=== PATIENT | male | born 1965 | race African-American/Black ===

== ENCOUNTER 2016-07-16 17:58 | Emergency (ER) | payer MEDICAID ==
[~2016-07-16] VITALS: Ht 172.7 cm; Wt 64.0 kg
[2016-07-16 18:21] VITALS: BP 103/73
== END 2016-07-16 18:55 | disposition home or self-care (01) ==
LOC: ER 18:21
DX: K64.4 Residual hemorrhoidal skin tags (principal); F17.200 Nicotine dependence, unspecified, uncomplicated
CPT/HCPCS: 99282

== ENCOUNTER 2018-04-27 11:24 | Emergency (ER) | payer OTHER ==
[~2018-04-27] VITALS: Ht 172.7 cm; Wt 64.0 kg
[2018-04-27] MEDS ORDERED: MORPHINE SULFATE 10 MG/ML CPJ IM ONE (12:30)
[2018-04-27] MEDS ORDERED: ONDANSETRON 4MG ODT PO ONE (12:30)
[2018-04-27 15:55] VITALS: BP 132/82
== END 2018-04-27 16:35 | disposition home or self-care (01) ==
LOC: ER 11:24
DX: S82.392A Other fracture of lower end of left tibia, initial encounter for closed fracture (principal); F17.210 Nicotine dependence, cigarettes, uncomplicated; F12.10 Cannabis abuse, uncomplicated; X50.1XXA Overexertion from prolonged static or awkward postures, initial encounter; Y93.89 Activity, other specified; Y92.89 Other specified places as the place of occurrence of the external cause
CPT/HCPCS: 29515; 73610; 96372; 99283; J2270; Q0162

== ENCOUNTER 2018-04-29 11:14 | Emergency (ER) | payer OTHER ==
[~2018-04-29] VITALS: Ht 172.7 cm; Wt 66.0 kg
[2018-04-29 11:20] VITALS: BP 131/85
[2018-04-29] MEDS ORDERED: HYDROCODONE/ACETAMINOPHEN 5/325MG TABLET PO ONE (12:45)
== END 2018-04-29 14:05 | disposition home or self-care (01) ==
LOC: ER 12:40
DX: S82.392A Other fracture of lower end of left tibia, initial encounter for closed fracture (principal); I10 Essential (primary) hypertension; F12.10 Cannabis abuse, uncomplicated; Z98.890 Other specified postprocedural states; X58.XXXA Exposure to other specified factors, initial encounter; Y93.89 Activity, other specified; Y92.89 Other specified places as the place of occurrence of the external cause
CPT/HCPCS: 29515; 99283

== ENCOUNTER 2018-07-07 14:02 | Emergency (ER) | payer OTHER ==
[~2018-07-07] VITALS: Ht 172.7 cm; Wt 64.0 kg
[2018-07-07 14:05] VITALS: BP 114/81
== END 2018-07-07 20:00 | disposition left against medical advice (07) ==
LOC: ER 14:02
DX: Z53.21 Procedure and treatment not carried out due to patient leaving prior to being seen by health care provider (principal)

== ENCOUNTER 2022-02-01 16:37 | Emergency (ER) | payer OTHER ==
[~2022-02-01] VITALS: Ht 167.6 cm; Wt 75.0 kg
[2022-02-01 17:14] VITALS: BP 153/115
[2022-02-01] MEDS ORDERED: IBUPROFEN 400MG TABLET PO ONE (22:00)
[2022-02-01] MEDS ORDERED: CEPHALEXIN 250MG CAPSULE PO ONE (22:00)
[2022-02-01] MEDS ORDERED: SULFAMETHOXAZOLE/TRIMETHOPRIM 800/160MG TABLET PO ONE (22:00)
[2022-02-01] MEDS ORDERED: SULF1TAB48 MT (23:22)
[2022-02-01] MEDS ORDERED: CEPH500C2 MT (23:22)
[2022-02-01] MEDS ORDERED: BENZ100C86 MT (23:29)
== END 2022-02-02 00:07 | disposition home or self-care (01) ==
LOC: ER 16:37
DX: M25.551 Pain in right hip (principal); I25.2 Old myocardial infarction; Z86.73 Personal history of transient ischemic attack (TIA), and cerebral infarction without residual deficits; F12.10 Cannabis abuse, uncomplicated; Z20.822 Contact with and (suspected) exposure to COVID-19
CPT/HCPCS: 71045; 73130; 73502; 87426; 87804; 99284; C9803

== ENCOUNTER 2024-10-03 21:43 | Emergency (ER) | payer MEDICAID, OTHER ==
[~2024-10-03] VITALS: Ht 175.3 cm; Wt 70.0 kg
[~2024-10-03 21:43] MED LIST: BENZ100C86 MT; CEPH500C2 MT; SULF1TAB48 MT
[2024-10-03 21:51] VITALS: O2SAT 98
[2024-10-03] MEDS: LIDOCAINE HCL 1% 20ML VIAL INFIL ONE (22:53)
[2024-10-04 00:33] LABS: CREATININE 0.8 mg/dL (0.6-1.3)
[2024-10-04 00:34] LABS: HEMATOCRIT. 42.4 % (42.0-52.0); HEMOGLOBIN. 14.0 g/dL (14.0-18.0); MEAN PLATELET VOLUME 9.8 fl (7.4-10.4); PLATELET 178 x1000/uL (130-400); RED BLOOD CELL COUNT 4.13 mill/uL (4.7-6.1); RED CELL DISTRIBUTION WIDTH 14.9 % (11.6-14.6); UREA NITROGEN BLOOD 5 mg/dL (9-23)
[2024-10-04] MEDS: ACETAMINOPHEN 325MG TABLET PO ONE (01:39)
[2024-10-04] MEDS ORDERED: CEPH500T MT (02:51)
[2024-10-04] MEDS ORDERED: ACET-2708 MT (02:51)
[2024-10-04] MEDS ORDERED: SULF1TAB48 MT (02:51)
[2024-10-04 03:30] VITALS: BP 110/75; PULSE 99; RESP 15; TEMP 36.7; O2SAT 99
[2024-10-04] MEDS ORDERED: IOHEXOL-350 100 ML BOTTLE ONE (06:30)
[2024-10-04 07:12] LABS: EOSINOPHILS % MANUAL 4.0 % (0.0-5.0); LYMPHOCYTES % MANUAL 36.0 % (20.0-50.0); MONOCYTES % MANUAL 25.0 % (2.0-8.0); NEUTROPHILS % MANUAL 35.0 % (45.0-75.0); PLATELET ESTIMATE NORMAL
== END 2024-10-04 03:33 | disposition home or self-care (01) ==
LOC: ER 21:43
DX: L02.811 Cutaneous abscess of head [any part, except face] (principal); F17.200 Nicotine dependence, unspecified, uncomplicated; F10.90 Alcohol use, unspecified, uncomplicated; Z86.73 Personal history of transient ischemic attack (TIA), and cerebral infarction without residual deficits; Y90.9 Presence of alcohol in blood, level not specified
CPT/HCPCS: 10060; 99285; 80048; 85025; 36415; 70496; 70450; J2003; Z7610; Q9967